=== PATIENT | female | born 1970 | race Caucasian/White ===

== ENCOUNTER → 2016-10-23 | Outpatient (CLI) | payer OTHER ==
--- NOTE | 2016-10-23 11:49 | RADRPT ---
EXAM DATE/TIME: 10/23/2016 10:17 [place] COMPARISON: No previous studies available for comparison. INDICATIONS : Pelvic pain. MEDICAL HISTORY : Pelvic pain. SURGICAL HISTORY : Tubal ligation. section. ENCOUNTER: Initial ACUITY: > 1 year PAIN SCORE: 5/10 LOCATION: Bilateral pelvis MEASUREMENTS: UTERUS: 14.3 x 6.1 x 4.3 cm RIGHT OVARY: 2.0 x 2.0 x 1.0 cm LEFT OVARY: 3.0 x 3.5 x 2.3 cm FINDINGS: The uterus is normal in size, and shape for the patient's age. No focal masses are identified. The en dometrial stripe is normal. Nabothian cyst is present in the lower uterine segment. The ovaries are n ormal in size and shape without evidence of focal mass. A small amount of fluid is present within the pelvis within the physiologic range. CONCLUSION: 1. Unremarkable ultrasound examination of the pelvis. Carson Brito MD on October 23, 2016 at 11:46 Board Certified Radiologist. This report was verified electronically.
== END ==
LOC: HRAD 09:44
PROVIDERS: ATTEND Pediatrics
DX: R10.9 Unspecified abdominal pain (principal)
CPT/HCPCS: 76830; 76856